=== PATIENT | female | born 2000 | race Caucasian/White ===

== ENCOUNTER 2022-06-21 14:09 | Emergency (ER) | payer OTHER ==
[~2022-06-21] VITALS: Ht 157.5 cm; Wt 48.1 kg
[~2022-06-21 14:09] MED LIST: FLONASE16 G1 NS; GILTUSS TR TAB1 EACH PO; OSEL75CA PO; PHENAGIL CH TA1 EACH PO; PLAN B ONE-STE1.5 MG; TUSSI PRES-B L120 M1 PO; ZITHROMAX TRI-500 MG PO
[2022-06-21] MEDS ORDERED: ZITHROMAX500 MG PO (20:57)
== END 2022-06-21 22:05 | disposition home or self-care (01) ==
LOC: ER 14:09
DX: B34.9 Viral infection, unspecified (principal); Z88.0 Allergy status to penicillin; Z20.822 Contact with and (suspected) exposure to COVID-19

== ENCOUNTER 2022-06-23 12:14 | Emergency (ER) | payer OTHER ==
[~2022-06-23] VITALS: Ht 157.5 cm; Wt 48.1 kg
[~2022-06-23 12:14] MED LIST changes: +ZITHROMAX500 MG PO
== END 2022-06-23 19:56 | disposition home or self-care (01) ==
LOC: ER 12:14
DX: D69.6 Thrombocytopenia, unspecified (principal); D72.819 Decreased white blood cell count, unspecified; Z20.822 Contact with and (suspected) exposure to COVID-19